=== PATIENT | male | born 1980 | race Caucasian/White ===

== ENCOUNTER 2018-12-07 13:58 | Emergency (ER) | payer BC, SELFPAY ==
[2018-12-07 13:59] VITALS: BP 138/84; PULSE 84; RESP 16; TEMP 36.9; O2SAT 98
--- NOTE | 2018-12-07 14:17 | W.ED.GENAD ---
Discharge Plan Disposition Patient Disposition: HOME Condition: Improving Discharge Details Chief Complaint: Abd Prob Clinical Impression: Diverticulitis Primary Care Provider: NANCY IGLESIAS ED Provider: Holli Weir Home Meds and New Rx's Prescriptions: New amoxicillin-pot clavulanate [Augmentin] 875-125 mg tablet 1 tab PO BID 10 Days Qty: 20 RF: 0 Discharge Instructions Instructions: Diverticulitis (ED), Diverticulitis Diet (ED) Additional Instructions: Follow the diverticulitis diet with low residue food over the next few days and advance your diet as tolerated. Take the antibiotics until finished. Call your primary care doctor Monday morning to schedule a follow-up appointment for reevaluation. Return immediately to the emergency department if you develop any worsening or new concerning symptoms of fever or worsening pain. Discharge Data Discharge Date/Time-TO BE ENTERED AT DEPARTURE: 12/07/18 16:44 Discharge Physician: Holli Weir Medical Decision Making 37-year-old male with no significant past medical history presents with diffuse sharp abdominal pain with radiation around to his back and into his groin since this morning. Vitals within normal limits. Patient has diffuse abdominal tenderness palpation, worse in the left upper quadrant, left mid abdomen and left lower quadrant. Presentation does not appear consistent with kidney stone as abdominal pain is diffuse and significantly tender. Differential diagnosis includes diverticulitis, pancreatitis, appendicitis, cholecystitis, small bowel obstruction. Will place an IV, bolus IV fluids, screening labs and CT abdomen pelvis. Labs and imaging reviewed. Labs unremarkable. CT notes mild sigmoid colon diverticulitis. No abscess or free air. Patient states he feels much better and feels good to go home. Pt never received the toradol. Dose of Augmentin p.o. given here as well as prescription. He is advised to alternate Tylenol and Motrin. He is advised to follow-up with his primary care doctor next week for reevaluation and to return here at any time. Medical Records Medical records reviewed: Yes I reviewed the patient's medical records. Imaging Data Radiologic Study: Radiologist's impression: CT ABDOMEN AND PELVIS: Post contrast CT abdomen and pelvis was performed. No priors. The lung bases are clear. The liver, spleen, pancreas, gallbladder, bile ducts and adrenal glands are unremarkable. The portal, superior mesenteric and splenic veins are patent. The kidneys, ureter and bladder are unremarkable, as are the reproductive organs. There is diverticulosis of the colon. There does appear to be mild thickening of the wall of the proximal sigmoid colon and mild pericolonic inflammatory changes seen, suggesting a mild acute diverticulitis. The remainder of the bowel is unremarkable. No abscess or free air is seen. No significant abdominal or pelvic adenopathy, ascites or pneumoperitoneum is present. The abdominal aorta is of normal caliber. IMPRESSION: Findings suggestive of mild acute sigmoid diverticulitis. No abscess or free air. Lab Data Lab results reviewed: Yes I reviewed the patient's lab results. Laboratory Tests Range/Units 12/07/18 12/07/18 12/07/18 14:34 14:34 14:34 WBC (4.4-10.8) k/cumm 8.62 RBC (4.50-6.00) m/cumm 5.45 Hgb (13.5-17.5) g/dL 16.2 Hct (40.0-50.0) % 47.3 MCV (80-95) fL 86.8 MCH (27.0-33.0) pg 29.7 MCHC (32.0-36.0) g/dL 34.2 RDW (11.8-14.1) % 13.2 Plt Count (130-400) x1000/uL 163 MPV (8.0-11.0) fL 11.0 Immature Gran % 0.3 Neutrophils % 63.6 Lymphocytes % 27.5 Monocytes % 7.3 Eosinophils % 0.8 Basophils % 0.5 Absolute Neutrophils (1.2-6.7) k/cumm 5.48 Absolute Lymphocytes (1.2-3.4) k/cumm 2.37 Absolute Monocytes (0.11-0.7) k/cumm 0.63 Absolute Eosinophils (0.0-0.7) k/cumm 0.07 Absolute Basophils (0.0-0.2) k/cumm 0.04 Sodium (136-145) mmol/L 137 Potassium (3.5-5.1) mmol/L 3.8 Chloride (98-107) mmol/L 102 Carbon Dioxide (21.0-32.0) mmol/L 29.0 Anion Gap (3-11) mmol/L 6.0 BUN (7-18) mg/dL 10 Creatinine (0.70-1.30) mg/dL 0.85 Estimated GFR/1.73 m2 (mL/min/1.73m2) >= 60.00 Glucose (70-100) mg/dL 86 Calcium (8.5-10.1) mg/dL 9.1 Magnesium (1.8-2.4) mg/dL 2.0 Total Bilirubin (0.2-1.0) mg/dL 0.4 AST (15-37) U/L 22 ALT (12-78) U/L 42 Alkaline Phosphatase (46-116) U/L 75 Troponin I (0.00-0.06) ng/mL < 0.05 Total Protein (6.4-8.2) g/dL 8.0 Albumin (3.4-5.0) g/dL 4.2 Lipase (73-393) U/L 141 Urine Color (Yellow) Urine Clarity (Clear) Urine pH (5-8) Ur Specific [place] (1.005-1.025) Urine Protein (Negative) mg/dL Urine Ketones (Negative) mg/dL Urine Blood (Negative) Urine Nitrite (Negative) Urine Bilirubin (Negative) Urine Urobilinogen (Up TO 0.2) EU/dL Ur Leukocyte Esterase (Negative) Urine Glucose (Negative) mg/dL Range/Units 12/07/18 14:50 WBC (4.4-10.8) k/cumm RBC (4.50-6.00) m/cumm Hgb (13.5-17.5) g/dL Hct (40.0-50.0) % MCV (80-95) fL MCH (27.0-33.0) pg MCHC (32.0-36.0) g/dL RDW (11.8-14.1) % Plt Count (130-400) x1000/uL MPV (8.0-11.0) fL Immature Gran % Neutrophils % Lymphocytes % Monocytes % Eosinophils % Basophils % Absolute Neutrophils (1.2-6.7) k/cumm Absolute Lymphocytes (1.2-3.4) k/cumm Absolute Monocytes (0.11-0.7) k/cumm Absolute Eosinophils (0.0-0.7) k/cumm Absolute Basophils (0.0-0.2) k/cumm Sodium (136-145) mmol/L Potassium (3.5-5.1) mmol/L Chloride (98-107) mmol/L Carbon Dioxide (21.0-32.0) mmol/L Anion Gap (3-11) mmol/L BUN (7-18) mg/dL Creatinine (0.70-1.30) mg/dL Estimated GFR/1.73 m2 (mL/min/1.73m2) Glucose (70-100) mg/dL Calcium (8.5-10.1) mg/dL Magnesium (1.8-2.4) mg/dL Total Bilirubin (0.2-1.0) mg/dL AST (15-37) U/L ALT (12-78) U/L Alkaline Phosphatase (46-116) U/L Troponin I (0.00-0.06) ng/mL Total Protein (6.4-8.2) g/dL Albumin (3.4-5.0) g/dL Lipase (73-393) U/L Urine Color (Yellow) Yellow Urine Clarity (Clear) Clear Urine pH (5-8) 5.5 Ur Specific [place] (1.005-1.025) 1.010 Urine Protein (Negative) mg/dL Negative Urine Ketones (Negative) mg/dL Negative Urine Blood (Negative) Negative Urine Nitrite (Negative) Negative Urine Bilirubin (Negative) Negative Urine Urobilinogen (Up TO 0.2) EU/dL 0.2 Ur Leukocyte Esterase (Negative) Negative Urine Glucose (Negative) mg/dL Negative HPI General Mode of arrival: ambulatory. Date/Time Provider Initiated Documentation: 12/07/18 14:11. Limitations to Documentation: no limitations. Information obtained by: patient. HPI Narrative: Patient is a 37yo M with no significant past medical history who presents to the ED with complaint of severe diffuse sharp abdominal pain since this morning. States the pain is been constant but intermittently has episodes of more severe pain. He had a normal bowel movement this morning without any bleeding. Patient denies any known fever, nausea, vomiting. Patient states he drinks alcohol occasionally on weekends. He states he took Pepto-Bismol without relief. He states his pain is worse with palpation. He denies any similar history of pain in the past. He denies any urinary symptoms. Related Data Home Medications Medication Instructions Recorded Confirmed amoxicillin-pot clavulanate 1 tab PO BID 10 Days #20 tab 08/02/19 [Augmentin] Previous Rx's Medication Instructions Recorded amoxicillin-pot clavulanate 1 tab PO BID 10 Days #20 tab 12/07/18 [Augmentin] Allergies Allergy/AdvReac Type Severity Reaction Status Date / Time No Known Allergies Allergy Unverified 12/07/18 14:03 General Stated Complaint: Abd Prob OBED: 3 Review of Systems Review of Systems All systems reviewed & are unremarkable except as noted in HPI and below Constitutional Reports as per HPI, Denies chills and Denies fever(s) Eyes Denies blurry vision ENT Denies dizziness, Denies sore throat and Denies throat swelling Cardiovascular Denies chest pain and Denies dyspnea Respiratory Denies cough and Denies dyspnea Gastrointestinal Reports abdominal pain, Denies diarrhea and Denies vomiting Genitourinary Denies hematuria and Denies dysuria Musculoskeletal Denies back pain and Denies numbness Integumentary/Breasts Denies lesions and Denies rash Neurologic Denies dizziness, Denies focal weakness and Denies numbness Allergic/Immunologic Denies throat swelling [facility] Medical History No significant past medical history (Acute) Surgical History No significant past surgical history (Acute) Social History Smoking/Tobacco Use Status: Current every day Alcohol Intake: current Alcohol Intake frequency: a few times a week Drug use: Never Do you feel safe at home: Yes Do you feel safe in your relationship?: Yes Exam Const General: cooperative, healthy appearing and no acute distress HENMT Head: normal to inspection Face and sinus: normal facial exam Eyes General: appearance normal, both eyes and all related structures EOM: EOM intact bilaterally Neck Neck: normal visual inspection and No submandibular swelling Lymphatic: no lymphadenopathy noted Chest Chest: normal inspection of the chest and no tenderness Resp Effort & Inspection: normal respiratory effort and able to speak in complete sentences Auscultation: clear to auscultation bilaterally Cardio Rate: regular rate Rhythm: regular rhythm GI Inspection: normal to inspection Palpation: soft, not firm, not rigid and tender (diffuse,worse in LUQ/mid abd/LLQ/periumbilical) Auscultation: hypoactive bowel sounds Skin General skin exam: no rashes or lesions noted Neuro General: alert, awake and oriented x3 Cognition: normal cognition Speech: speech normal Motor: muscle tone normal throughout Sensory Exam: no sensory deficits noted Extrem General: normal to inspection, full ROM, normal capillary refill, no calf tenderness bilaterally and no edema Psych Appearance: grossly normal Mental Status: mental status grossly normal Speech and Movement: speech and movement normal Affect: normal affect Course Vital Signs Temperature 98.4 F 12/07/18 13:59 Pulse 84 12/07/18 13:59 Respiratory Rate 16 12/07/18 13:59 Blood Pressure 138/84 12/07/18 13:59 Pulse Oximetry 98 12/07/18 13:59 Temperature 98.4 F 12/07/18 13:59 Temperature Source Skin 12/07/18 13:59 Pulse 84 12/07/18 13:59 Respiratory Rate 16 12/07/18 13:59 Respiratory Effort 12/07/18 14:04 Blood Pressure 138/84 12/07/18 13:59 Blood Pressure Position Sitting 12/07/18 13:59 Pulse Oximetry 98 12/07/18 13:59 Oxygen Delivery Method Room Air 12/07/18 13:59 Oxygen Flow Rate 0 12/07/18 13:59 Pain Level 8 12/07/18 13:59
[2018-12-07 14:57] LABS: Bilirubin Negative (Negative); Blood Negative (Negative); Clarity Clear (Clear); Glucose Negative (Negative); Ketones Negative (Negative); Leukocyte Esterase Negative (Negative); Nitrite Negative (Negative); Urobilinogen 0.2 EU/dL (Up TO 0.2); pH 5.5 (5-8)
--- NOTE | 2018-12-07 14:59 | DI.RAD_ITS ---
SYMPTOMS/DIAGNOSIS: DIFFUSE ABDOMINAL PAIN, TENDER PERIUMBILICAL, LEFT LOWER QUADRANT CT ABDOMEN AND PELVIS: Post contrast CT abdomen and pelvis was performed. No priors. The lung bases are clear. The liver, spleen, pancreas, gallbladder, bile ducts and adrenal glands are unremarkable. The portal, superior mesenteric and splenic veins are patent. The kidneys, ureter and bladder are unremarkable, as are the reproductive organs. There is diverticulosis of the colon. There does appear to be mild thickening of the wall of the proximal sigmoid colon and mild pericolonic inflammatory changes seen, suggesting a mild acute diverticulitis. The remainder of the bowel is unremarkable. No abscess or free air is seen. No significant abdominal or pelvic adenopathy, ascites or pneumoperitoneum is present. The abdominal aorta is of normal caliber. IMPRESSION: Findings suggestive of mild acute sigmoid diverticulitis. No abscess or free air.
[2018-12-07] MEDS: Normal Saline 1,000 ML 1000 ML IV (15:10)
[2018-12-07 15:15] LABS: Abs Immature Grans 0.03 k/cumm (0.0-0.09); Absolute Basophil Count 0.04 k/cumm (0.0-0.2); Absolute Eosinophil Count 0.07 k/cumm (0.0-0.7); Absolute Lymphocyte Count 2.37 k/cumm (1.2-3.4); Absolute Monocyte Count 0.63 k/cumm (0.11-0.7); Absolute Neutrophil Count 5.48 k/cumm (1.2-6.7); Basophils % 0.5; Eosinophils % 0.8; HCT 47.3 % (40.0-50.0); HGB 16.2 g/dL (13.5-17.5); Immature Grans % 0.3; Lymphocytes % 27.5; Mean Corp. HGB Concentration 34.2 g/dL (32.0-36.0); Mean Corpuscular Hemoglobin 29.7 pg (27.0-33.0); Mean Corpuscular Volume 86.8 fL (80-95); Monocytes % 7.3; Neutrophils % 63.6; Platelet Count 163 x1000/uL (130-400); RBC 5.45 m/cumm (4.50-6.00); RBC Distribution Width 13.2 % (11.8-14.1); White Blood Cell Count 8.62 k/cumm (4.4-10.8)
[2018-12-07 15:32] LABS: ALT 42 U/L (12-78); AST 22 U/L (15-37); Albumin 4.2 g/dL (3.4-5.0); Alkaline Phosphatase 75 U/L (46-116); BUN 10 mg/dL (7-18); Bilirubin, Total 0.4 mg/dL (0.2-1.0); CREATININE 0.85 mg/dL (0.70-1.30); Calcium 9.1 mg/dL (8.5-10.1); Chloride 102 mmol/L (98-107); Glucose 86 mg/dL (70-100); Potassium 3.8 mmol/L (3.5-5.1); Sodium 137 mmol/L (136-145)
[2018-12-07] MEDS: Omnipaque 350 MG/ML 100 ML BTL IJ (15:34)
[2018-12-07 15:37] LABS: Lipase 141 U/L (73-393); Troponin I < 0.05 ng/mL (0.00-0.06)
[2018-12-07 16:34] VITALS: BP 136/79; PULSE 79; RESP 16; O2SAT 99
[2018-12-07] MEDS: Amoxicillin 875/Clav. 125 TAB PO (16:36)
[2018-12-07 16:44] VITALS: BP 136/79; PULSE 79; RESP 16; TEMP 36.9; O2SAT 99
== END 2018-12-07 16:44 | disposition home or self-care (01) ==
PROVIDERS: Emergency Provider Physician Assistant; PCP Family Medicine
DX: K57.32 Diverticulitis of large intestine without perforation or abscess without bleeding (principal)
CPT/HCPCS: 36415; 80053; 83690; 96360; 99284; 74177; 81003; 83735; 84484; 85025; J3490

== ENCOUNTER 2020-02-04 08:55 | Outpatient (CLI) | payer OTHER, SELFPAY ==
[2020-02-07 04:21] LABS: Patient Race White; SARS-CoV-2 RNA Undetected (Undetected); SARS-CoV-2 Specimen Source Nasopharynx
== END 2020-02-04 09:15 ==
PROVIDERS: PCP Family Medicine; Visit Provider Family Medicine
DX: R43.8 Other disturbances of smell and taste (principal)
CPT/HCPCS: U0003

== ENCOUNTER 2020-07-21 08:35 | Outpatient (CLI) | payer OTHER, SELFPAY ==
[2020-07-22 13:24] LABS: COVID-19 RT-PCR UVMMC Result Negative (Negative)
== END 2020-07-21 08:36 | disposition home or self-care (01) ==
PROVIDERS: PCP Family Medicine; Visit Provider Nurse Practitioner Family
DX: Z20.822 Contact with and (suspected) exposure to COVID-19 (principal)
CPT/HCPCS: U0003

== ENCOUNTER 2021-01-06 07:20 | Outpatient (CLI) | payer OTHER, SELFPAY ==
[2021-01-06 20:16] LABS: COVID-19 RT-PCR UVMMC Result Negative (Negative)
== END 2021-01-06 07:21 | disposition home or self-care (01) ==
PROVIDERS: PCP Family Medicine; Visit Provider Nurse Practitioner Family
DX: Z20.822 Contact with and (suspected) exposure to COVID-19 (principal)
CPT/HCPCS: U0003

== ENCOUNTER 2021-12-31 01:47 | Outpatient (CLI) | payer OTHER, SELFPAY ==
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
--- OUTSIDE RECORDS SUMMARY | 2021-12-31 01:48 | XMS_ITS | Encounter Summary ---
:1980 Author Organization [facility] Address [facility] [place] [address] Care Team Providers Name Role Phone Annie Carcamo MD Primary Care Provider Encounter Details Date Type Department Care Team Description 06/02/2012 Orders Only Otolaryngology at [facility] Jae Jiang, [facility] [place] [address] [facility] [phone] OTOLARYNGOLOGY D EPT. [place], [place] [address] (Wo rk) Social History Tobacco Use Types Packs/Day Years Used Date Never Assessed Sex Assigned at Date Recorded Not on file documented as of this encounter Plan of Treatment Not on filedocumented as of this encounter Procedures Procedure Name Priority Date/Time Associated Diagnosis Comme nts FILM LIBRARY Routine 06/02/2012 10:45 AM Results for this STORAGE ONLY CT EST procedure ar e in [facility] the results section. documented in this encounter Results Film Library- Storage only CT [facility] (06/02/2012 10:45 AM EST) Specimen (Source) Anatomical Collection Method Collection Time Re ceived Time Location / / Volume Laterality 06/02/2012 10:45 AM EST Narrative RAD - 12/25/2013 11:01 PM EDT This is a non-reportable exam. Procedure Note Yunier Brush - 12/25/2013Formatti ng of this note might be different from the original. This is a non-reportable exam. Jae Jiang MD G FILM LIBRARY ORDERABLES Performing Organization Address City/State/ZIP Code Phon e Number [facility] [address] [place] [address] documented in this encounter Visit Diagnoses Not on filedocumented in this encounter Care Teams Web Editor Relationship Specialty Start Date End Date Arley-Annie Javier MD PCP - General 03/30/10 79 [facility] [address] [place] [address] documented as of this encounter
--- OUTSIDE RECORDS SUMMARY | 2021-12-31 01:48 | XMS_ITS | Clinical Summary ---
:1980 Author Organization [facility] Address [address] [place] [address] Care Team Providers Name Role Phone Unknown, Provider Primary Care Provider Social History Tobacco Use Types Packs/Day Years Used Date Never Assessed Sex Assigned at Date Recorded Not on file Plan of Treatment Health Maintenance Due Date Last Done Comments Hepatitis C Screen 1980 COVID-19 Vaccine (1) 12/09/1983 Care Teams Manufacturing Coordinator Relationship Specialty Start Date End Date Unknown, Provider, PCP - General 06/13/17
--- OUTSIDE RECORDS SUMMARY | 2021-12-31 01:48 | XMS_ITS | Encounter Summary ---
:1980 Author Organization [facility] [place] [address] Care Team Providers Name Role Phone Annie Carcamo MD Primary Care Provider Encounter Details Date Type Department Care Team Description 06/05/2012 External Results XRay at [facility] Love, [address] [place] [address] [place] [address] [facility] [phone] [place], [place] [address] (Wo rk) Social History Tobacco Use Types Packs/Day Years Used Date Never Assessed Sex Assigned at Date Recorded Not on file documented as of this encounter Plan of Treatment Not on filedocumented as of this encounter Procedures Procedure Name Priority Date/Time Associated Diagnosis Comme nts CT SCAN (SCAN) Routine 06/02/2012 documented in this encounter Results Scan Doc: CT Scan (06/02/2012) Anatomical Region Laterality Modality Other Narrative This result has an attachment that is no t available. Roosevelt Love MD MEDIA MGR SCAN EXT ORDR/RSLT documented in this encounter Visit Diagnoses Not on filedocumented in this encounter Care Teams Sheet Sewer Relationship Specialty Start Date End Date Annie Carcamo MD PCP - General 03/30/10 79 [facility] [address] [place], [place] [id number] documented as of this encounter
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
--- OUTSIDE RECORDS SUMMARY | 2021-12-31 01:48 | XMS_ITS | Encounter Summary ---
:1980 Author Organization [facility] Address [address] [place] [address] Care Team Providers Name Role Phone Unknown, Provider Primary Care Provider Encounter Details Date Type Department Care Team Description 06/09/2017 Results Only [facility] Kt Hua MD [phone] [place], [place] [address] (Wo rk) Social History Tobacco Use Types Packs/Day Years Used Date Never Assessed Sex Assigned at Date Recorded Not on file documented as of this encounter Plan of Treatment Not on filedocumented as of this encounter Procedures Procedure Name Priority Date/Time Associated Diagnosis Comme [facility] SURGICAL PATHOLOGY Routine 06/09/2017 14:49 Resul ts for this EST procedure are i n the results section. documented in this encounter Results SURGICAL PATHOLOGY (06/09/2017 14:49 EST) Pathology Report: SURGICAL PATHOLOGY REPORT [facility] Reports generated via electronic interface contain ismael ginal data; LABORATORY however they are lacking the format of the original re port. SERVICES Caution should be taken when reading/interpreting unfo rmatted reports. Name: ? CLAUDETTE BENITEZ ? Accession #: ? [id number] ? : ? 1980 (Age: 36 ) ??M ? Collect Date: ? 06/09/2017 ? Location: ? [facility] ? Receive Date: ? 06/13/2017 ? Provider: KT HUA MD Copy to: ? Final Pathologic Diagnosis: A. VAS DEFERENS, LEFT, VASECTOMY: - Segment of vas deferens with complete cross sections identified. B. VAS DEFERENS, RIGHT, VASECTOMY: - Segment of vas deferens with complete cross sections identified. Document reviewed and electronically signed by: AMMON DEL CASTILLO MD Report ??Date: 06/15/2017 10:18 By the signature above, the attending physician certif ies that he/she has personally conducted a gross and/or microscopic examin ation of the described specimens and rendered or confirmed the above diagnosi s. Specimen(s) Received: A. ??Left vas deferens B. ??Right vas deferens Clinical History: Sterilization status; clinical diagnosis code: Z98.58 Gross Description: A. ?Received in formalin labelled with proper p atient identification (initials K, K) and left va s deferens is a rubbery monahan-white irregular tissue (0.2 x 0.2 x 0.2 cm). Entirely submitted in A1. B. ?Received in formalin labelled with proper p atient identification (initials K, K) and right vas deferens is a focally hemorrhagic rubbery monahan-white irregular tissue (0.2 x 0.2 x 0.15 cm). Ent irely submitted in B1. CONSUELO Allen (ASCP) 06/13/2017 3:00 PM End of Report Specimen Performing Organization Address City/State/ZIP Code Phon e Number [facility] [address] [place] [address] SERVICES documented in this encounter Visit Diagnoses Not on filedocumented in this encounter Care Teams Treater Relationship Specialty Start Date End Date Unknown, Provider, PCP - General 06/13/17 documented as of this encounter
--- OUTSIDE RECORDS SUMMARY | 2021-12-31 01:48 | XMS_ITS | Clinical Summary ---
:1980 Author Organization [place] [address] Care Team Providers Name Role Phone Annie Carcamo MD Primary Care Provider Allergies No known active allergies Medications Medication Sig Dispensed Refills Start Date End Date Status OXYcodone-acetaminophe Take 1-2 tablets 40 tablet 0 06/03/2012 Active n (PERCOCET) 5-325 mg by mouth every 4 per tablet hours as needed for Pain. Active Problems No known active problems Social History Tobacco Use Types Packs/Day Years Used Date Current Every Day Smoker 1 Sex Assigned at Date Recorded Not on file Last Filed Vital Signs Vital Sign Reading Time Taken Comments Blood Pressure 149/81 06/07/2012 9:24 AM EST Pulse 79 06/07/2012 9:24 AM EST Temperature 36.8 ??C (98.2 ??F) 06/03/2012 4:34 AM EST Respiratory Rate 18 06/03/2012 4:34 AM EST Oxygen Saturation 99% 06/03/2012 4:34 AM EST Inhaled Oxygen Concentration - - Weight 83.9 kg (185 lb) 06/07/2012 9:24 AM EST Height 182.9 cm (6') 06/07/2012 9:24 AM EST Body Mass Index 25.09 06/07/2012 9:24 AM EST Plan of Treatment Health Maintenance Due Date Last Done Comments Covid-19 Vaccine (#1) 12/09/1983 HIV screen 1996 Hepatitis C Screening 1996 Lipid Screening 1996 Tdap adult 1997 Tetanus vaccine 1997 Influenza (Flu) vaccine (1 of 1 - Influenza standard 01/06/2022 series) Care Teams Carpenter Helper Maintenance Relationship Specialty Start Date End Date Michael Carcamoah, MD PCP - General 03/30/[address] [address]
--- OUTSIDE RECORDS SUMMARY | 2021-12-31 01:48 | XMS_ITS | Encounter Summary ---
:1980 Author Organization [facility] Address [address] [place] [address] Care Team Providers Name Role Phone Unknown, Provider Primary Care Provider Encounter Details Date Type Department Care Team Description 01/06/2021 Lab Requisition [facility] Outr Resulting Lab, Pathology & Laboratory Provider [facility] [address] [place] [address] Social History Tobacco Use Types Packs/Day Years Used Date Never Assessed Sex Assigned at Date Recorded Not on file documented as of this encounter Plan of Treatment Not on filedocumented as of this encounter Procedures Procedure Name Priority Date/Time Associated Diagnosis Comme nts COVID-19 TEST [facility] Today 01/06/2021 8:30 EDT LAB PCR COVID-19 TESTING Routine 01/06/2021 8:30 EDT Resu lts for this procedure are i n the results section. documented in this encounter Results COVID-19 TEST [facility] LAB PCR (01/06/2021 8:30 EDT) Specimen Swab - Entire nasopharynx (body structur e) Performing Organization Address City/State/ZIP Code Phon e Number [facility] [address] [place] [address] SERVICES COVID-19 TESTING (01/06/2021 8:30 EDT) COVID-19 rt-PCR Negative Negative [facility] Result Comment: [facility] This test has not been FDA c leared or approved. This test has been authorized by FDA under an EUA for use by authorized laboratories. This test has been authorized only for detection of nucleic acid fro SERVICES m 2018-nCo, not for any oth er viruses or pathogens. This test is only authorized for the duration of the declaration that circumstances exist justifying the authorization of emergency use of in vitro d iagnostic tests for detectio n and/or diagnosis of 2019-nCoV under section 564(b)(1) of Act, 21 U.S.C ?? 360bbb-3(b) (1), unless the authorization is terminated or revoked sooner. Negative results do not prec lude 2019-nCoV infection and should not be used as the sole basis for treatment or other patient management decisions. Negative results must be combined with clinical observa tions, patient history, and epidemiological informatio n. Performed on the Meaningfyher Fusion instrument Performing Lab Jay[facility] Lab [facility] SERVICES Specimen Swab Performing Organization Address City/State/ZIP Code Phon e Number [facility] [address] [place] [address] SERVICES documented in this encounter Visit Diagnoses Not on filedocumented in this encounter Care Teams Associate Theatre Professor Relationship Specialty Start Date End Date Unknown, Provider, PCP - General 06/13/17 documented as of this encounter
--- OUTSIDE RECORDS SUMMARY | 2021-12-31 01:48 | XMS_ITS | Encounter Summary ---
:1980 Author Organization [facility] Address [address] [place] [address] Care Team Providers Name Role Phone Unavailable Primary Care Provider Unavailable Encounter Details Date Type Department Care Team Description 06/09/2017 Hospital Encounter [facility] [place] Unknown, Provider, [facility] [address] [facility] [phone] [place] [address] (Work) [phone] Social History Tobacco Use Types Packs/Day Years Used Date Never Assessed Sex Assigned at Date Recorded Not on file documented as of this encounter Discharge Disposition Disposition Code Departure Means Destination Home or Self Shelter documented in this encounter Plan of Treatment Not on filedocumented as of this encounter Visit Diagnoses Not on filedocumented in this encounter
[2021-12-31] MEDS: Albuterol HFA 18 GM 200 PUFF INH IH (15:43)
[2021-12-31] MEDS: Inhaler, Assist Device 1 EACH MC (15:43)
--- NOTE | 2022-01-04 16:17 | W.PFT ---
Date of service: 12/31/21 Time of Service: 14:53 Pulmonary Function Test Result Requesting Provider Malcolm Allen Indications: Dyspnea Interpretation Spirometry: There is no airflow limitation.There is no significant bronchodilator response. Impression Normal spirometry Clinical Correlation therefore is recommended.
== END 2021-12-31 01:48 | disposition home or self-care (01) ==
LOC: RT 01:47
PROVIDERS: PCP Family Medicine; Visit Provider Family Medicine
DX: R06.01 Orthopnea (principal); Z87.891 Personal history of nicotine dependence; R06.00 Dyspnea, unspecified
CPT/HCPCS: 94060

== ENCOUNTER 2022-08-11 02:23 | Outpatient (CLI) | payer OTHER, SELFPAY ==
--- NOTE | 2022-08-11 08:05 | DI.RAD_ITS ---
Exam(s) XR SHOULDER LT COMPLETE 2+V EXAM: XR SHOULDER LT COMPLETE 2+V CLINICAL HISTORY: Likely rotator cuff tear, ? degenerative changes,pain,m75.102. TECHNIQUE: 2D digital imaging was performed. COMPARISON: No exams were available for comparison FINDINGS: Five views: No evidence of fracture or dislocation. No abnormal soft tissue calcifications. Subacromial space i s not diminished. No degenerative changes evident in the glenohumeral and AC joints. Coracoid proce ss is intact. Bone density normal. IMPRESSION: No significant osseous findings in the left shoulder. DATA REPOSITORY: RADIATION DOSE DELIVERED:
== END 2022-08-11 02:43 ==
LOC: DI 02:23
PROVIDERS: PCP Family Medicine; Visit Provider Family Medicine
DX: M25.512 Pain in left shoulder (principal)
CPT/HCPCS: 73030

== ENCOUNTER 2022-09-16 00:28 | Outpatient (CLI) | payer OTHER, SELFPAY ==
--- NOTE | 2022-09-16 08:15 | DI.MRI_ITS ---
Exam(s) MR UPPER JOINT LT WO EXAM: MR UPPER JOINT LT WO CLINICAL HISTORY: Likely rotator cuff tear,PAIN,M75.102. TECHNIQUE: Multiplanar multisequence MRI was performed. COMPARISON: Plain films 11 August 2022 FINDINGS: BONES: There is no fracture or contusion pattern. JOINTS:The acromioclavicular joint shows minimal spurring. The glenohumeral joint is normal. No genevieve nt effusion. TENDONS: Supraspinatus: Unremarkable. Infraspinatus: Unremarkable. Subscapularis: Unremarkable. Teres Minor: Unremarkable. Biceps and [place]: Unremarkable. Some fluid around the biceps tendon but no evidence of tear. MUSCLES: Unremarkable. GLENOID LABRUM: Unremarkable on this noncontrast examination. SOFT TISSUES: Unremarkable. OTHER: Subacromial and subdeltoid bursae are unremarkable.. Small amount of fluid in the subcoracoid bursa. IMPRESSION: Amount of fluid around the biceps tendon without evidence of tear. Small amount of fluid in the subc oracoid bursa. DATA REPOSITORY:
== END 2022-09-16 00:48 ==
PROVIDERS: PCP Family Medicine; Visit Provider Family Medicine
DX: M75.102 Unspecified rotator cuff tear or rupture of left shoulder, not specified as traumatic (principal)
CPT/HCPCS: 73221

== ENCOUNTER 2023-02-07 01:38 | Outpatient (CLI) | payer OTHER, SELFPAY ==
[2023-02-07 08:50] LABS: ALT 51 U/L (16-63); AST 26 U/L (15-37); Albumin 3.9 g/dL (3.4-5.0); Alkaline Phosphatase 55 U/L (46-116); BUN 12 mg/dL (7-18); Bilirubin, Total 0.6 mg/dL (0.2-1.0); CREATININE 1.2 mg/dL (0.70-1.30); Calcium 9.1 mg/dL (8.5-10.1); Calculated LDL 96 mg/dL (<100); Chloride 104 mmol/L (98-107); Cholesterol 172 mg/dL (<200); Estimated GFR 76.48 (mL/min/1.73m2); Glucose 109 mg/dL (74-106); HDL Cholesterol 59 mg/dL (40-60); Potassium 3.8 mmol/L (3.5-5.1); Sodium 140 mmol/L (136-145); Total Protein 7.5 g/dL (6.4-8.2); Triglyceride 89 mg/dL (<150)
[2023-02-08 10:30] LABS: HIV-1/2 Ag & Ab Screen Negative (Negative)
[2023-02-08 11:25] LABS: Hepatitis C Ab w Rflx HCV PCR Negative (Negative)
== END 2023-02-07 01:39 ==
LOC: LBO 01:39
PROVIDERS: PCP Family Medicine; Visit Provider Family Medicine
DX: I10 Essential (primary) hypertension (principal); Z11.3 Encounter for screening for infections with a predominantly sexual mode of transmission
CPT/HCPCS: 36415; 80053; 80061; 86803; 87389

== ENCOUNTER 2024-03-23 09:02 | Emergency (ER) | payer OTHER, SELFPAY ==
[2024-03-23 09:04] VITALS: BP 124/95; PULSE 122; RESP 18; TEMP 36.1; O2SAT 95
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
[2024-03-23] MEDS: Lidocaine 1% Multi-Dose 50 ML VIAL (09:19)
== END 2024-03-23 09:41 | disposition home or self-care (01) ==
PROVIDERS: Emergency Provider Emergency Medicine; PCP Family Medicine
DX: S61.412A Laceration without foreign body of left hand, initial encounter (principal); W26.0XXA Contact with knife, initial encounter
CPT/HCPCS: 12001; J2003

== ENCOUNTER 2024-04-02 15:05 | Emergency (ER) | payer OTHER, SELFPAY ==
[2024-04-02 15:07] VITALS: BP 156/90; PULSE 86; RESP 15; TEMP 36.4; O2SAT 99
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
== END 2024-04-02 15:31 | disposition home or self-care (01) ==
LOC: ER 15:25
PROVIDERS: Emergency Provider Nurse Practitioner Family; PCP Family Medicine
DX: Z48.02 Encounter for removal of sutures (principal)
CPT/HCPCS: 99281; 99282

== ENCOUNTER 2024-12-16 09:03 | Day surgery (SDC) | payer OTHER, SELFPAY ==
--- NOTE | 2024-12-15 17:26 | PDOC.DSDIS_ITS ---
Date of service: 12/16/24 Discharge Plan Disposition Patient Disposition: Home Condition: Good Discharge Details Reason For Visit: screening colonoscopy Attending Provider: Quang Hameed Primary Care Provider: Malcolm Allen Home Meds and New Rx's Prescriptions: Continued losartan-hydrochlorothiazide 50-12.5 mg tablet 1 tab PO DAILY Qty: 90 3RF famotidine 20 mg tablet 20 mg PO DAILY Discharge Instructions Instructions: Colon polyps Additional Instructions: Juventino, It was nice meeting you today, I hope you are comfortable procedure. Things went very smoothly. I did find, and remove, a total of 8 polyps today. All of these were relatively small, and none of them have any features that are particularly worrisome to the naked eye. All of these will be sent to the director of nuclear medicine for their review. Those results will take about a week or 2 to get back. Once I have that information, my office will be in touch with recommendations for future colonoscopies. Two of these polyps were relatively close to the anus, so do not be alarmed if you experience a little bit of bleeding over the next few bowel movements. I would expect this to stop over the next 24 to 72 hours. If you need anything, or have any questions at all, please do not hesitate to call. Otherwise, my office will be in touch once we have the results of the analysis. 1. If tolerated, consume a soft, low fiber diet for 1-2 days. 2[address] Do not drive, drink alcohol, operate machinery, make critical decisions, or do activities that require coordination or balance for 24 hours. 3. Because air was put into your colon during the procedure, expelling air from your rectum (passing gas or farting) is normal. 4. You may not have a bowel movement for 1-3 days because of the colonoscopy prep. This is normal. 5. Go directly to the emergency room if you notice any of the following: Develop chills (warm to touch), or if you have a thermometer and your temperature is above 101 Difficulty breathing or difficultly swallowing Persistent vomiting Severe abdominal pain, other than gas cramps Severe chest pain Black, tarry stools Any bleeding ? exceeding one tablespoon 6. Call your physician if the site where your intravenous was started becomes red, swollen, painful, and warm to touch. 7. Your physician has reviewed your pre-procedure medications. Please continue to take those medications as previously ordered. You will be given specific information/education regarding any changes to your medications before leaving. Activity:: Activity as Tolerated Diet:: As Tolerated Discharge Orders Discharge Orders: Discharge Order (Routine); Ordered 12/15/24 Ordered By: Quang Hameed DS: Diagnosis Discharge Diagnosis (1) Encounter for screening colonoscopy: Status: Acute Asessment and Plan: Follow-up polypectomy results
--- NOTE | 2024-12-15 17:27 | W.COLOREPORT ---
Date of service: 12/16/24 Time of Service: 11:44 Colonoscopy Report Date of procedure: 12/16/24 Pre-op diagnosis general: screening colonoscopy Post-op diagnosis procedure note: other (Colorectal polyps) Procedure: colonoscopy with polypectomy Surgeon: Quang Hameed Anesthesia Type: General:No Airway Estimated blood loss (mL): 10 Pathology: other (0.25 cm rectal polyps x 2 (single specimen), 0.25 cm polyp at 75 cm, 0.5 cm polyp at 45 cm, 0.5 cm polyp at 25 cm, 0.5 cm, 0.25 cm polyps at 20 cm x 2 (single specimen).) Complications: None Disposition: same day Indications: Juventino is a 43 year old man who needs a screening colonoscopy Prep: Miralax/Dulcolax Procedure Start Time: 11:02 Procedure End Time: 11:24 Retraction Time: 14 Findings: 0.25 cm rectal polyps x 2 (single specimen), 0.25 cm polyp at 75 cm, 0.5 cm polyp at 45 cm, 0.5 cm polyp at 25 cm, 0.5 cm, 0.25 cm polyps at 20 cm x 2 (single specimen). Procedure Description: After the induction of anesthesia, and with Juventino in left lateral decubitus position, I began by performing an external anorectal exam.? Perineum and skin were normal, as was the anal verge.? There was no evidence of external hemorrhoids.? Next, I performed a digital rectal exam.? I did not appreciate any abnormal findings.? Next, I advanced a colonoscope into the rectal vault.? I performed retroflexion.? This appeared normal.? In the midportion of the rectal polyp which polyps. These were each 0.25 cm and flat. These polyps were removed with cold forceps with minimal bleeding. These were sent as a single specimen. Using irrigation, I then advanced the colonoscope beyond the rectal folds and into the sigmoid colon before advancing towards the cecum.? The scope was noted to be in the cecum by identification of the ileocecal valve and appendiceal orifice.? I then began withdrawing the colonoscope using repeated irrigation as necessary for full evaluation of the colonic mucosa. ?Around 75 cm from the anal verge was another 0.25 cm flat polyp. This was grasped with forceps without issue. A 0.5 cm pedunculated polyp was found at 45 cm. This was cold snare polypectomy. There was no bleeding here. Similarly, there is 0.5 cm pedunculated polyp was found at 35 cm as with a cold snare as well. A 0.25 cm polyp was also found at 30 cm. This was more flat. This was removed in piecemeal with cold forceps. Around 20 cm from the anal verge were 2 more flat polyps. These were each about 0.25 cm. These were evaluated with cold forceps and also sent as a single specimen. Once the scope was withdrawn to the level of the rectum, great care was taken to examine portions of the rectal folds.? Finally, the scope was withdrawn and the patient was brought to the same-day surgery recovery unit as the anesthetic wore off. ?The findings and instructions were shared with the patient prior to discharge. Kenner Bowel Prep Kenner Bowel Prep Right Colon: 3 Left Colon: 3 Transverse Colon: 3 Total Score: 9
[2024-12-16 09:41] VITALS: BP 134/102; PULSE 76; RESP 16; TEMP 36.5; O2SAT 97
[2024-12-16] MEDS: Lactated Ringers 1,000 ML 80 ML IV (10:05)
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
[2024-12-16 10:54] VITALS: BMI 28.0
--- NOTE | 2024-12-16 11:05 | BOWEL_PTH ---
PATIENT: Juventino Benitez LOC: [facility] U#:[id number] AGE/SX: 44/M ROOM: RE12/16/[address]: Quang Hameed MD : 1980 BED: DIS: 12/16/2024 SPEC #: [id number] RECD: 12/16/24 13:01 STATUS: MÓNICA RE #: [id number] PEGGY: 12/16/24 11:[address]: Quang Hameed DEPT: Surgical Specimen RECD BY: Bonita Stinson ENTERED: 12/16/24 13:03 SP TYPE: Bowel OTHR DR: Malcolm Allen DO Tissues: 1 - BIOPSY BOWEL 2 - BIOPSY BOWEL 3 - BIOPSY BOWEL 4 - BIOPSY BOWEL 5 - BIOPSY BOWEL 6 - BIOPSY BOWEL Procedures: GROSS AND MICRO LEVEL 4 Comments: [id number]
[2024-12-16 11:32] VITALS: BP 126/94; PULSE 88; RESP 16; TEMP 36.3; O2SAT 94
--- NOTE | 2024-12-16 11:57 | W.ANESPOSTOP ---
Postoperative Evaluation Date, Time and Location Date Performed: 12/16/24 Time Performed: 11:32 Patient Location: Day Surgery Unit Vital Signs Most Recent Imported Vital Signs: Most Recent Vital Signs Temp Pulse Resp BP Pulse Ox 36.3 C L 88 16 126/94 H 94 12/16/24 11:32 12/16/24 11:32 12/16/24 11:32 12/16/24 11:32 12/16/24 11:32 Pain Score Most Recent Pain Score: Most Recent Pain Score Pain Level 0 12/16/24 11:32 Assessment Mental Status: Awake (Alert & Oriented to Patient Baseline) Airway and Respiratory Function: Patent airway with normal (patient baseline) respiratory exam Cardiovascular Function: Hemodynamically Stable Hydration Status: Adequately Hydrated Nausea & Vomiting: No Nausea or Vomiting Pain: Pt. Denies Any Pain Peripheral Nerve Block: Patient did not receive a nerve block
[2024-12-16 12:05] VITALS: BP 133/100; PULSE 83; RESP 17; TEMP 36.5; O2SAT 93
== END 2024-12-16 12:20 | disposition home or self-care (01) ==
LOC: SUR 09:03
PROVIDERS: PCP Family Medicine; Visit Provider Surgery
PROC: 0DJD8ZZ Inspection of Lower Intestinal Tract, Via Natural or Artificial Opening Endoscopic (ICD-10-PCS; CPT 45378; principal; 2024-12-16 10:30)
DX: Z12.11 Encounter for screening for malignant neoplasm of colon (principal); D12.4 Benign neoplasm of descending colon; D12.5 Benign neoplasm of sigmoid colon; K62.1 Rectal polyp
CPT/HCPCS: 45385; 45380; 88305; J2003; J2704